=== PATIENT | male | born 1975 | race Caucasian/White ===

== ENCOUNTER 2018-11-08 18:00 | Emergency (ER) | payer OTHER ==
[~2018-11-08] VITALS: Ht 185.4 cm; Wt 95.5 kg
[2018-11-08 18:01] VITALS: BP 137/92
[2018-11-08] MEDS ORDERED: LIDOCAINE 1% MDV 20ML VIAL IM ONE (18:30)
[2018-11-08] MEDS ORDERED: NEOSPORIN OINT 0.9 GM PKT (FLOOR STOCK) As Ordered ONE (19:04)
[2018-11-08] MEDS ORDERED: NEOSPORIN OINT 0.9 GM PKT (FLOOR STOCK) TOP ONE (19:15)
== END 2018-11-08 19:11 | disposition home or self-care (01) ==
LOC: M ED 18:00
DX: S81.012A Laceration without foreign body, left knee, initial encounter (principal); W22.8XXA Striking against or struck by other objects, initial encounter; Y92.830 Public park as the place of occurrence of the external cause; Y93.23 Activity, snow (alpine) (downhill) skiing, snowboarding, sledding, tobogganing and snow tubing; Y99.9 Unspecified external cause status